=== PATIENT | female | born 1950 | race Caucasian/White ===

== ENCOUNTER 2016-09-29 16:18 | Emergency (ER) | payer MEDICAID ==
[~2016-09-29] VITALS: Ht 162.6 cm; Wt 79.4 kg
[~2016-09-29 16:18] MED LIST: AZITHROMYCIN250 M1 PO; CAYENNE PEPPER PO; CEFTIN500 MG PO; FLEXERIL10 MG PO; IBUPROFEN200 MG PO; NAPROSYN500 M1 PO; TESSALON PERLE100 M1 PO; ZITHROMAX Z-PA250 M1 PO; ZOFRAN4 MG PO
--- NOTE | 2016-09-29 16:47 | Emergency Room Report ---
History of Present Illness Time Seen by [id number] Presenting Problem in Triage Pt arrived:Walked Presenting Problem:PT ADVISES SHE WAS SEEN LAST WEEK AND DIAGNOSED WITH BRONCHITIS. PT ADVISES WHEN SHE COUGHS SHE NOTICES BRIGHT RED BLOOD OF TISSUE. 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 N Clinical Suspician of Infection? N Mental Status: 1 - Regular (Normal Baseline) Sepsis Risk:Low Sepsis Risk Have you (or family members/close friends) recently traveled outside the [place]? N If Yes, where/when: Have you had exposure to infectious disease within the past month? N TB? Other? Specify: Source patient Exam Limitations no limitations Comment Pt presents to ER with complaints of persistent productive cough with discolored mucous tinged with blood. Blood is not always present in the mucous and just started appearing 2 days ago. Reports that she was seen here last week and treated with antibiotic which she has completed. Cough is worse when she lays down and first thing in the morning. Timing/Duration week Severity mild Modifying Factors Improves With: medication. Worsens With: cough. Associated Symptoms cough, headache (off & on) ALLERGIES Coded Allergies: Sulfa (Sulfonamide Antibiotics) (09/22/16) latex (09/22/16) Home Medications Active Scripts Benzonatate (Tessalon Perle) 100 MG PO TID PRN cough #30 SGL Prov: 09/22/16 History Medical History General CAD? No Angina: No DC: No Hypertension? No Hyperlipidemia? No CHF? No DVT? No PE? No COPD? No Asthma? No Anemia? No GERD? No Gastric ulcers? No GI Bleed? No Hernia? No Thyroid Problems? No Hypothyroidism? No CVA? No Seizures? No Diabetes? No Renal Insuffiency? No End Stage Renal Disease? No UTI? No Stones? No GB Disease: No Nephritic Syndrome? No Asplenia? No Hepatitis? No Sickle Cell Disease? No Arthritis? No Migraines? No Cataracts? No Glaucoma? No MRSA? No HIV? No TB? No Anxiety? No Depression? No Cancer? No Immunization Hx DT/Tetanus Unknown Surgical Hx Previous Surgery?Y HYSTERECTOMY CYST REMOVE FROM SHOULDER Family History Family Hx Hypertension Yes Social History Smoking Hx Smoker: Current Every Day Smoker Tobacco: Yes Type Cigarettes Alcohol Alcohol: No Review of Systems All Other Systems Reviewed and Negative Constitutional denies fever, malaise ENT ear pain (popping), nose congestion. denies: throat pain. Respiratory cough, denies shortness of breath, denies wheezing Cardiovascular denies chest pain Physical Exam Vital Signs Vital Signs Date Time Temp Pulse Resp B/P Pulse O2 O2 Flow FiO2 Ox Delivery Rate 09/29 1701 82 16 139/90 97 09/29 1623 98.5 89 16 147/92 95 General Appearance normal appearance, WD/WN Eye Exam - bilateral eye normal exam, bilateral eye PERRL, bilateral eye EOMI Ear, Nose, Throat hearing grossly normal, normal ENT inspection Neck normal inspection, non-tender, supple, full range of motion Respiratory Status Yes: trachea midline, chest symmetrical, non tender chest, productive cough. No : respiratory distress, use of accessory muscles, pain on inspiration, pain on expiration. Lung Sounds bilateral: normal breath sounds, lungs clear. right: rhonchi, wheezing, expiration (RUL rhonchi w/inspiration). 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 No Results/Orders Laboratory Tests 09/29/16 1635: Sodium 139, Potassium 4.1, Chloride 102, Carbon Dioxide 31, BUN 10, Creatinine 0.9, Estimated Creat Clear 80, Estimated GFR (MDRD) 63, Glucose 114 H, Calcium 9.0, Total Bilirubin 0.2, AST 16, ALT 25, Alkaline Phosphatase 87, Total Protein 7.1, Albumin 3.5, Globulin 3.6 H, Albumin/Globulin Ratio 1.0 L, WBC 11.0 H, RBC 5.24, Hgb 15.4, Hct 46.0, MCV 87.8, RDW 14.5, Plt Count 411, MPV 8.3, Gran % 57.6, Gran # 6.4, Lymphocytes % 34.6, Monocytes % 5.6, Eosinophils % 1.2, Basophils % 1.0, Lymphocytes # 3.8, Monocytes # 0.6, Eosinophils # 0.1, Basophils # 0.1, PUBS MCHC 33.6, MCH 29.5 Orders Procedure Date/time Status CHEST(2 VIEWS-NOT PORTABLE) 09/29 1634 Active COMPLETE METABOLIC PANEL 09/29 1634 Complete CBC WITH AUTO DIFF 09/29 1634 Complete Departure Departure Time of Disposition 171 Disposition DC Home or Self Care(routine) Clinical Impression Primary Impression: Bronchitis Secondary Impressions: Cough productive of purulent sputum Condition STABLE Patient Instructions DI for Acute Bronchitis Additional Instructions Increase fluids, warm salt water gargles for throat. F/U with PCP in 2-3 days for recheck, sooner if worse before then. Discharge Counseling Counseled pt/family regarding diagnosis, test results, medications/RX, home care, follow up needs Prescriptions Current Visit Scripts Levofloxacin (Levaquin 750mg) 750 MG PO DAILY #5 TAB Methylprednisolone (Medrol Dose Marshall) 4 MG PO UD #1 MARSHALL TAKE DIRECTED ON PACKAGING Bpm/Dm/Pse Hcl (Bromfed Dm Cough Syrup) 5 ML PO Q6HP PRN cough 10 Days ED Critical Care Critical Care No Comments Increase fluids, warm salt water gargles for throat. F/U with PCP in 2-3 days for recheck, sooner if worse before then. at 1711
[2016-09-29 16:59] LABS: HEMOGLOBIN 15.4 g/dL (12.2-16.2); LYMPH # 3.8 K/mm3 (0.7-4.5); LYMPH % 34.6 % (10-50.0)
[2016-09-29] MEDS ORDERED: BROMFED DM COU473 ML PO (17:09)
[2016-09-29] MEDS ORDERED: MEDROL 4MG. DOSE4 MG PO (17:09)
[2016-09-29] MEDS ORDERED: LEVAQUIN 750 M750 MG PO (17:09)
--- NOTE | 2016-09-29 17:24 | RADIOLOGY REPORT PS360 ---
CHEST(2 VIEWS-NOT PORTABLE) COMPARISON: PA and lateral chest 10/15/2014 HISTORY: Hemoptysis TECHNIQUE: PA and lateral chest FINDINGS: Mild emphysematous changes seen with hyperexpansion of the lung quick and flattening of the hemidiaphragms. There is no infiltrate and is no pleural fluid. Cardiac size is normal and the vascularity is normal. There are surgical clips in the right supraclavicular region and these were noted previously. IMPRESSION: Mild COPD, no acute chest pathology noted
[2016-09-29 17:27] VITALS: BP 129/89
[2016-11-27] MEDS ORDERED: ALKA-SELTZER D1 EACH PO (23:39)
[2016-11-28] MEDS ORDERED: PREDNISONE20 MG PO (09:16)
[2016-11-28] MEDS ORDERED: PROAIR HFA0.09 MG/AC IH (09:16)
== END 2016-09-29 17:27 | disposition home or self-care (01) ==
LOC: ER 16:18
PROVIDERS: Emergency Medicine
DX: J20.9 Acute bronchitis, unspecified (principal); Z72.0 Tobacco use

== ENCOUNTER 2017-02-23 11:11 | Emergency (ER) | payer MEDICAID ==
[~2017-02-23] VITALS: Ht 162.6 cm; Wt 77.1 kg
[~2017-02-23 11:11] MED LIST changes: +ALKA-SELTZER D1 EACH PO; +BROMFED DM COU473 ML PO; +LEVAQUIN 750 M750 MG PO; +MEDROL 4MG. DOSE4 MG PO; +PREDNISONE20 MG PO; +PROAIR HFA0.09 MG/AC IH
--- NOTE | 2017-02-23 11:24 | Urgent Treatment Center Report ---
History of Present Issue Date/Time Seen by Provider 02/23/17 1123 Visit Reason Pt arrived:Walked Presenting Problem:COUGH AND CONGESTION. HAS BEEN RECENTLY TREATED FOR BRONCHITIS AND NEVER GOT OVER HER SYMPTOMS AFTER A STEROID, ANTIBIOTIC, AND INHALER. Location if Accident: Onset of symptoms date/time:01/19/17 or onset unknown for: Have you (or family members/close friends) recently traveled outside the [place]? N If Yes, where/when: Have you had exposure to infectious disease within the past month? TB? Other? Specify: c/o cough and chest congestion again. Seen back in November for same symptoms x months without improvement w/ steroids, antibiotics. Sent to ER. Admitted for observation as well as duonebs, IV steroids, IV antibiotics. Improved. Couldn't FU w/ Dr. Lassiter (who saw her inpatient) due to insurance. Scheduled appt w/ Dr. Mccain but he unexpectedly . Called and changed to Dr. Fish and was scheduled with Abraham but office called to reschedule because Abraham had to be out of office. Appt not for another 1-2 weeks. "I am getting worse and can 't wait until then". Has been doing better "but I still cough". Not feeling need to use ventolin. Then "about 2 weeks ago" felt cough getting worse slowly. Progressively getting worse again. SOA, wheezing. needing ventolin 1-2x/day. Took grandkids to [place] 2 days ago and sore throat started. Already improving but not the cough. Used a friend's neb last night "so I could fall asleep". Thick sputum at times. Unsure of color. Denies fever, aches, chills. Continues to smoke. No known sick contacts. Source patient Exam Limitations no limitations ALLERGIES Coded Allergies: Sulfa (Sulfonamide Antibiotics) (09/22/16) latex (09/22/16) Home Medications Active Scripts Benzonatate (Tessalon Perle) 100 MG PO TID PRN cough #30 SGL Prov: 09/22/16 Prednisone (Prednisone 20MG Tab) 20 MG PO BID #10 TAB Prov: 11/28/16 Albuterol Sulfate (Proair Hfa) 2 PUFFS IH Q6HP PRN SHORTNESS OF BREATH #1 INH Prov: 11/28/16 Reported Medications Doxylamine/Phenylep/Dm/Aspirin (Felecia-Indian Day-Night Tab Eff) 1 EACH PO Q4 History Medical History General CAD? No Angina: No RI: No Hypertension? No Hyperlipidemia? No CHF? No DVT? No PE? No COPD? No Asthma? No Anemia? No GERD? No Gastric ulcers? No GI Bleed? No Hernia? No Thyroid Problems? No Hypothyroidism? No CVA? No Seizures? No Diabetes? No Renal Insuffiency? No UTI? No Stones? No GB Disease: No Nephritic Syndrome? No Asplenia? No Hepatitis? No Sickle Cell Disease? No Arthritis? No Migraines? No Cataracts? No Glaucoma? No MRSA? No HIV? No TB? No Anxiety? No Depression? No Cancer? No Additional hx: 1. Fibromyalgia 2. Osteoporosis Immunization HX Ped.Immunizations UTD Yes DT/Tetanus Unknown Flu Refused Pneumonia Refuses Surgical Hx Previous Surgery?Y HYSTERECTOMY CYST REMOVE FROM SHOULDER Family History Family HX Hypertension Yes Social History Smoking Hx Smoker: Current Every Day Smoker Tobacco: Yes Type Cigarettes Packs/day < 1 Pack Alcohol Alcohol: No Review of Systems All Other Systems Reviewed and Negative Constitutional see HPI Eyes denies drainage ENT see HPI. denies: ear pain, ear discharge, nose discharge, nose congestion, throat swelling. Respiratory see HPI Cardiovascular denies chest pain, denies palpitations Gastrointestinal denies no symptoms reported Psychiatric/Neurological denies headache Physical Exam Vital Signs Vital Signs Date Time Temp Pulse Resp B/P Pulse O2 O2 Flow FiO2 Ox Delivery Rate 02/23 1116 98.3 88 22 151/91 94 General Appearance normal appearance, no apparent distress (other than frequent cough) Eye Exam - bilateral eye normal exam Ear, Nose, Throat normal ENT inspection Neck non-tender, supple Respiratory Status Yes: trachea midline, chest symmetrical, non tender chest, productive cough ( worse w/ deep breath, talking). No: respiratory distress, use of accessory muscles, pain on inspiration, pain on expiration. Lung Sounds anterior: rhonchi (throughout all lobes), wheezing (expiratory, all lobes, faint ). posterior: rhonchi (throughout all lobes), wheezing (expiratory, all lobes, faint). bilateral: rhonchi (throughout all lobes), wheezing (expiratory, all lobes, faint). Cardiovascular regular rate/rhythm, no peripheral edema, no murmur Neurologic alert, oriented x 3 Mental status normal mood/affect Skin intact, normal color, warm/dry Lymphatic no adenopathy Medical Decision Making LABS/Meds/Orders Pt receiving controlled substance in ED? No Results/Orders Current Medication Orders Sig/Reed Start time Last Medication Dose Route Stop Time Status Admin Albuterol/Ipratropium 0 .STK-MED ONE 02/23 1139 DC INH Methylprednisolone 0 .STK-MED ONE 02/23 1133 DC Sodium Succinate .ROUTE Albuterol/Ipratropium 3 ML ONCE ONE 02/23 1130 DC 02/23 INH 02/23 1131 1145 Methylprednisolone 125 MG ONCE ONE 02/23 1130 DC 02/23 Sodium Succinate IM 02/23 1131 1134 Orders Procedure Date/time Status RT Aerosol Treatment, Provide 02/23 1204 Active RT REQUEST DUONEB 02/23 1130 Active CHEST(2 VIEWS-NOT PORTABLE) 02/23 1123 Active XRAY/CT/US XRAY/CT/US XRAY chest XR interpretation by reviewed by me (w/ Dr. Calloway, ER ) Xray Results COPD no infiltrate Progress [facility] Progress Notes Date 02/23/17 Time 1155 Comment reports improvement already since solumedrol and duoneb. Waiting for CXR results. Departure Departure Time of Disposition 1217 Disposition DC Home or Self Care(routine) Clinical Impression Primary Impression: COPD with exacerbation Secondary Impressions: Tobacco abuse Condition STABLE Referrals Polina MAGUIRE,Issac Lemon (Family) Call office today. tell then you have an upcoming appt but were here today and encouraged to follow up ALETHA. they may be able to get you a sooner appointment. Return to [facility]/ER for new or worsening symptoms. 911 for difficulty breathing. Patient Instructions DI for Chronic Obstructive Pulmonary Disease, How to Quit Tobacco Products Additional Instructions * start antibiotic today. Be sure to complete entire prescription even if feeling better. * Monitor Temp. No fevers yet so a fever would be unexpected. Be sure to follow up if fevers start. * humidifier/vaporizer/hot steamy shower * Inhaler every 4-6 hours as needed like we discussed. . Should help open airways and improve cough, wheezing, shortness of breath. * Mucinex during the day for your cough and cough suppressant only at night. Be sure to drink lots of water. Insurance may not cover a prescription of mucinex. Might be cheaper to get 400mg tablets and take 2 tablets morning, midday and evening all with lots of water. * Promethazine DM cis not available. Robitussin DM only at night. * Start steroid tomorrow. Helps with inflammation therefore, cough and wheezing. Follow directions on package. Rvwd side effects. Pt reports they have taken them before. Follow up IMMEDIATELY for new or worsening symptoms OR no noticeable improvement over the next 48-72 hours. 911 for difficulty breathing. Discharge Counseling Counseled pt/family regarding diagnosis, test results, medications/RX, home care, follow up needs Prescriptions Current Visit Scripts ALBUTEROL (Proventil Hfa Inhaler) 1-2 PUFF IH Q4-6H PRN PRN SOA, wheezing #1 CAN Azithromycin (Zithromycin (Z-MARSHALL) 250MG Tab) 250 MG PO DAILY #6 TAB TAKE TWO (2) TABLETS ON DAY 1, THEN ONE (1) TABLET DAY #2 THRU #5 Prednisone (Prednisone 20MG) 20 MG PO BID #10 TAB at 1222
[2017-02-23] MEDS ORDERED: PREDNISONE 20MG20 MG PO (12:22)
[2017-02-23] MEDS ORDERED: PROVENTIL0.09 MG/A1 IH (12:22)
[2017-02-23] MEDS ORDERED: ZITHROMAX Z PA250 MG PO (12:22)
[2017-02-23 12:26] VITALS: BP 151/91
--- NOTE | 2017-02-23 14:39 | RADIOLOGY REPORT PS360 ---
CHEST(2 VIEWS-NOT PORTABLE) Ordering Physician: MALDONADO HODGES APRN Patient Age: 66 years: Female HISTORY: COUGH, CONGESTIONcough congestion Respiratory symptoms since November TECHNIQUE: PA and lateral chest COMPARISON is made to previous 2 view chest 11/27/2016 FINDINGS The patient has diffuse coarsening of markings bilaterally most evident centrally and similar to previous study. . I suspect this may reflect some chronic changes related to smoking history. Possible chronic bronchitis. No acute findings are evident. No focal pneumonia. No mass or nodule. Patient may want to consider a CT chest or screening CT chest. Note there is been a previous biopsy or surgery at the right supraclavicular region. Requires correlation. Lateral film shows mild hyperexpansion and flattening of diaphragm. No effusion. No pneumothorax. Chest wall unremarkable. T-spine with minor levocurvature thoracic spine and dextrocurvature thoracolumbar spine. IMPRESSION: 1. No change since November 27, 2016 CXR. 2. Diffuse stable coarsening appearance of interstitial markings throughout lungs bilaterally, reflecting chronic lung changes & history of smoking. Possible chronic bronchitis. Cannot exclude early interstitial fibrotic changes.. No significant smoking history me protocol, consider offering screening CT chest.
== END 2017-02-23 12:26 | disposition home or self-care (01) ==
LOC: UTC 11:11
DX: J44.1 Chronic obstructive pulmonary disease with (acute) exacerbation (principal); Z72.0 Tobacco use